=== PATIENT | male | born 1960 | race Caucasian/White ===

== ENCOUNTER 2017-02-04 11:28 | Outpatient (CLI) | payer OTHER ==
[2017-02-04 11:52] LABS: #Basophils 0.1 thou/uL (0.0-0.2); #Eosinphils 0.3 thou/uL (0.0-0.7); #Lymphocytes 1.7 thou/uL (1.20-3.40); #Monocytes 0.8 thou/uL (0.11-0.59); %Basophils 1.1 % (0.0-1.0); %Eosinophils 3.6 % (0.0-10.0); %Lymphocytes 21.2 % (21.0-51.0); %Monocytes 10.5 % (0.0-10.0); %Neutrophils 63.7 % (42.0-75.0); Hemoglobin 16.9 g/dL (14.0-18.0); Mean Corpuscular Hemoglobin 32.5 pg (27.0-31.0); Mean Corpuscular Volume 98.5 fl (80.0-94.0); Mean Platelet Volume 7.5 fL (7.4-10.4); Platelet Count 203 thou/uL (130-400); RBC Distribution Width 11.9 % (11.5-14.5); White Blood Cell (WBC) Count 7.9 thou/uL (4.8-10.8)
[2017-02-04 12:27] LABS: ALT (SGPT) 21 U/L (8-55); AST (SGOT) 22 U/L (5-34); Albumin 4.4 g/dL (3.5-5.0); Alkaline Phosphatase 75 U/L (40-150); Anion Gap 15 mmol/L (10-20); BUN (Urea Nitrogen) 16 mg/dL (8.4-25.7); Calc. Creatinine Clearance 0 mL/min (70-130); Calcium 9.2 mg/dL (7.8-10.44); Carbon Dioxide 27 mmol/L (22-29); Cardiac Risk 4.6 (Less than 4.5); Chloride 103 mmol/L (98-107); Cholesterol 147 mg/dl (< 200 Desired); Estimated GFR-MDRD Greater than 90; Globulin 2.8 g/dL (2.4-3.5); Glucose 97 mg/dL (70-105); HDL Cholesterol 32 mg/dL (>60 Neg Risk); LDL Cholesterol, Calculated 98 mg/dL; Potassium 4.2 mmol/L (3.5-5.1); Protein, Total 7.2 g/dL (6.0-8.3); Sodium 141 mmol/L (136-145); Triglycerides 87 mg/dL (Less than 150)
== END 2017-02-04 11:29 | disposition home or self-care (01) ==
LOC: HPCALD 11:28
PROVIDERS: ATTEND Family Medicine
DX: I10 Essential (primary) hypertension (principal)
CPT/HCPCS: 36415; 80053; 80061; 85025

== ENCOUNTER 2017-03-11 09:30 | Outpatient (CLI) | payer BC ==
--- NOTE | 2017-03-11 22:50 | RAD ---
CHEST THREE VIEWS 03/11/17 Several PA and lateral views were submitted. Comparison is made with a 05/16/14 study. Mild cardiomegaly is about the same as before. There is no vascular congestion, edema, or pleural ef fusion. The lungs are clear. A calcified granuloma is seen in the left mid lung zone. The lungs othe rwise were unremarkable except for slight hyperinflation. Degenerative changes were prominent in the T-spine. The trachea is midline. Slight prominence of mediastinal width is typical in this patient and unchanged over the three year period. IMPRESSION: Mild cardiomegaly but no acute finding. POS: HOME
== END 2017-03-11 09:31 | disposition home or self-care (01) ==
LOC: BURRAD 09:30
PROVIDERS: ATTEND Family Medicine
DX: Z01.818 Encounter for other preprocedural examination (principal); I51.7 Cardiomegaly
CPT/HCPCS: 71020

== ENCOUNTER 2022-02-22 08:50 | Outpatient (CLI) | payer BC | END 2022-02-22 08:51 | disposition home or self-care (01) | LOC: BUREKG 08:50 | PROVIDERS: ATTEND Family Medicine | DX: Z01.810 Encounter for preprocedural cardiovascular examination (principal) | CPT/HCPCS: 93005; 93010 ==